=== PATIENT | female | born 1940 | race Caucasian/White ===

== ENCOUNTER 2018-09-09 07:30 | Inpatient (IN) ==
[2018-09-14] MEDS ORDERED: Metoprolol Tartrate 25 MG Tablet PO SCH (05:00)
[2018-09-14] MEDS ORDERED: Dextrose 50% in Water 50 ML Vial IV.PUSH PRN ×2 (06:06→13:04)
[2018-09-14] MEDS ORDERED: Insulin Regular (For Infusion) 100 UNIT in Sodium Chlor 0.9% Inj 99 ML IV.CONT PRN ×2 (06:06→15:00)
[2018-09-14] MEDS ORDERED: Chlorhexidine Gluconate 2% 1 Pack (2 Cloths) TOPICAL ONE (06:08)
[2018-09-14] MEDS ORDERED: Metoprolol Tartrate 25 MG Tablet PO ONE (06:08)
[2018-09-14] MEDS ORDERED: Metoprolol Tartrate 25 MG Tablet ONE (06:08)
[2018-09-14] MEDS ORDERED: ceFAZolin 1 GM Premix Inj 1 GM/50 ML FROZ.PIGGY IV.SIG ONE ×3 (06:15→22:33)
[2018-09-14] MEDS ORDERED: Sodium Chlor 0.9% Inj 77.5 ML, Papaverine Inj 60 MG, Nitroglycerin Inj 100 MCG, dilTIAZ... IRRIGATION SCH ×6 (06:15→07:00)
[2018-09-14] MEDS ORDERED: Sodium Chloride 0.9% Irr Bot 500 ML, ceFAZolin Inj 500 MG IRRIGATION SCH ×2 (06:15)
[2018-09-14] MEDS ORDERED: Chlorhexidine 4% Topical 120 APPLIC/120 ML Bottle TOPICAL SCH (06:15)
[2018-09-14] MEDS ORDERED: MethylPREDNISolone Sod Succinate Inj 125 MG/2 ML Vial ONE (06:16)
[2018-09-14] MEDS ORDERED: Heparin - SQ 10,000 UNITS/ML Vial ONE (06:16)
[2018-09-14] MEDS ORDERED: Sodium Chlor 0.9% Inj 500 ML IV.SIG SCH (07:00)
[2018-09-14] MEDS ORDERED: ceFAZolin 2 GM Premix Inj 2 GM/50 ML PIGGYBACK IV.SIG SCH (07:00)
[2018-09-14] MEDS ORDERED: Potassium Chlor 40 mEq Premix 40 MEQ/100 ML PIGGYBACK ONE (07:32)
[2018-09-14] MEDS ORDERED: Heparin 10,000 UNITS/10 ML Vial (for IV use) ONE (07:32)
[2018-09-14] MEDS ORDERED: CUST1000P IRRIGATION ONE (07:32)
[2018-09-14] MEDS ORDERED: Albumin Human 25% Inj 50 ML IV.SIG ONE (07:33)
[2018-09-14] MEDS ORDERED: Calcium Chloride Inj 1 GM/10 ML Syringe ONE (07:33)
--- NOTE | 2018-09-14 12:22 | P.PNCV ---
- Note Subjective/Hospital Course: 78yr/ old female , hx of Mitral Valve disease . Underwent cardiac cath by Dr Toure , 3 vessel CAD, KALEB mod to severe MR with EF 55% seen in office by Dr Child on 09/01/18 PMH: CAD, MR, HLP, HTN 09/14 pt electively admitted for surgery today MVR/CABG Objective: Vital Signs - 24 hr 09/14/18 06:30 Temperature 98.7 F Pulse Rate 83 Respiratory Rate 18 Blood Pressure 134/73 Pulse Oximetry 95 Labs: Laboratory Results - last 12 hr 09/14/18 06:00 Blood Type O Positive Antibody Screen Negative MTS Gel Crossmatch See Detail
[2018-09-14] MEDS ORDERED: Magnesium Sulfate Inj 2 GM in Sodium Chlor 0.9% Inj 96 ML IV.SIG PRN ×4 (13:04)
[2018-09-14] MEDS ORDERED: Calcium Chloride Inj 1 GM/10 ML Syringe IV.PUSH PRN (13:04)
[2018-09-14] MEDS ORDERED: hydrALAZINE HCl Inj 20 MG/ML Vial IV.PUSH PRN (13:04)
[2018-09-14] MEDS ORDERED: Calcium Chloride Inj 1 GM in Sodium Chlor 0.9% Inj 100 ML IV.SIG PRN (13:04)
[2018-09-14] MEDS ORDERED: Dexmedetomidine Inj 200 MCG in Sodium Chlor 0.9% Inj 48 ML IV.CONT PRN (13:04)
[2018-09-14] MEDS ORDERED: Post-op Orders (for Pharmacy) OTHER STA (13:04)
[2018-09-14] MEDS ORDERED: Potassium Chlor 20 mEq Premix 20 MEQ/100 ML PIGGYBACK IV.SIG PRN ×3 (13:04)
[2018-09-14] MEDS ORDERED: RESP: Racemic Epinephrine 2.25% 0.5 ML Neb NEB PRN (13:04)
[2018-09-14] MEDS ORDERED: DOPamine 800 MG/500 ML Premix 800 MG/500 ML PLAST..BAG IV.CONT PRN (13:04)
[2018-09-14] MEDS ORDERED: Albumin Human 5% Inj 250 ML IV.SIG PRN (13:04)
[2018-09-14] MEDS ORDERED: Clevidipine Inj 25 MG/50 ML VIAL IV.CONT PRN (13:04)
[2018-09-14] MEDS ORDERED: Metoprolol Inj 5 MG/5 ML Vial IV.PUSH PRN (13:04)
--- NOTE | 2018-09-14 13:36 | P.OP ---
- Preoperative Diagnosis (1) Diastolic heart failure (2) CAD (coronary artery disease), [place] coronary artery (3) Mitral valve insufficiency Postoperative Diagnosis: same Date of procedure: 09/14/18 Procedure: Mitral valve repair Quadrangular resection P1 with leaflet reconstruction, closure of posterior leaflet P2/P3 cleft Annuloplasty with a 28 [address] [place] [place] ring CABG x 4 LANDIN to LAD - good SVG to D1 - fair SVG to OM1 - good SVG to RCA - good EVH Resection of left atrial appendage Implants: 28 [place] mitral annuloplasty ring Anesthesia: GETA Surgeon: Mai Child MD Java Designer: Flavio Villa Pathology: other (P1 leaflet segment, left atrial appendage) Operation and Findings: The risks, benefits, complications, treatment options, and expected outcomes were discussed with the patient. The possibilities of reaction to medication, pulmonary aspiration, perforation of viscus, bleeding, recurrent infection, the need for additional procedures, failure to diagnose a condition, and creating a complication requiring transfusion or operation were discussed with the patient. The patient concurred with the proposed plan, giving informed consent. The site of surgery properly noted/marked. The patient was taken to Operating Room, identified as [place] and the procedure verified as Mitral Valve Repair or Replacement, CABG, EVH, KALEB. A Time Out was held and the above information confirmed. Standard monitoring lines and Roman catheter were placed. General anesthesia was induced. The patient was prepped and draped in a sterile fashion. A median sternotomy was performed and electrocautery was used to obtain hemostasis. The left internal mammary artery was procured as a pedicle from the 7th rib to the 1st rib in the usual manner. Simultaneously left greater saphenous vein was procured from the left leg using a minimally invasive endoscopic technique. The vein was prepared for anastomosis and the leg wound was irrigated and closed in 2 layers. The pericardium was opened and a pericardial sling was created using interrupted 0 silk sutures. The patient was heparinized for cardiopulmonary bypass and the distal mammary pedicle was instrumented for anastomosis. The heart was instrumented for cardiopulmonary bypass in the usual manner. Antegrade Custodiol cardioplegia was employed. The patient was placed on cardiopulmonary bypass. The left atrial appendage was resected using a surgical stapler. An aortic cross-clamp was applied and the heart was arrested using cold Custodiol cardioplegia. After adequate arrest, the distal right coronary circulation was investigated and the RCA was opened with a Swisher blade and found to be a 1.5 mm good target. Saphenous vein was approximated to the RCA artery using a running 7 0 Prolene suture. The graft was measured for length and orientation and the proximal anastomosis was performed using a running 5-0 prolene suture after creating an aortotomy with a 5 mm punch. The 1st circumflex marginal artery was then opened with a Swisher blade and found to be a 1.5 millimeter good target . Saphenous vein was approximated to the OM1 artery using a running 7 0 Prolene suture. The graft was measured for length and orientation and the proximal anastomosis was performed using a running 5-0 prolene suture after creating an aortotomy with a 5 mm punch. The 1st diagonal artery was then opened with a Swisher blade and found to be a 1 millimeter fair target . Saphenous vein was approximated to the D1 artery using a running 7 0 Prolene suture. The graft was measured for length and orientation and suspended from the pericardium. The distal LAD was opened with a Swisher blade and found to be a 1.5 millimeter good target. The left internal mammary artery was but was approximated to the LAD using a running 7 0 Prolene suture. The pedicle was attached to the epicardium using interrupted 5 0 silk suture. The patient received a dose of retrograde cardioplegia. The intra-atrial groove was dissected out using electrocautery. The left atrium was entered under direct vision and the atriotomy was extended mildly inferiorly and posteriorly. The mitral valve was exposed using an automatic retractor. The valve was analyzed and the P1 segment was prolapsed with a single ruptured chordae. There was also a posterior cleft between P2 and P3. A quadrangular resection was performed and the leaflet was reconstructed using a 2-0 ticron at the annulus and interrupted 5-0 Ticron sutures on the leaflet. The annulus was sized to a 28 [place] annuloplasty ring which was seated using several interrupted 2-0 Tycron horizontal mattress sutures. After securing the sutures, the valve repair was tested and felt to be inadequate due to some regurgitation along the posterior leaflet. The posterior leaflet was investigated and a cleft was approximated using interrupted 5 0 Tycron suture. The valve repair was then again tested and was excellent. The left atrium was closed using a running 4-0 Prolene suture and a small catheter was left in the left atrium to assist in venting the heart. The patient was systemically rewarmed. The aorta was vented and the proximal anastomosis to the D1 graft was accomplished using a running 5 0 Prolene suture after creating an aortotomy was a 5 millimeter punch. The heart was vigorously deaired with a clamp on. The clamp was removed, deairing continued. Intraoperative KALEB was used to assess intracardiac air and the mitral valve repair. Once the air was evacuated, the vent in the left atrium was removed and the suture line was secured. The heart was loaded and allowed to eject and the mitral valve was analyzed by KALEB. The repair was excellent with trace regurgitation. The patient was weaned from cardiopulmonary bypass. Protamine was given. There was no adverse reaction. Decannulation was carried out without incident. Wound was checked for hemostasis which was obtained using electrocautery. A 36 [place] mediastinal and 32 [place] left pleural chest was were placed and secured to the skin with 0 silk suture. The sternum was closed with stainless steel wire. The fascia was closed with 1. PDS. The subcutaneous tissue was closed using a running 2-0 Vicryl suture. The skin was closed with 4-0 Monocryl. Sterile dressings were placed. At the end of the operation, all sponge, instruments, and needle counts were correct. The patient was transferred to the CVICU in stable condition. Findings: Relatively good distal targets, EF 45-50% after the procedure with trace MR. XC: 136 min CPB: 159 min Drains: mediastinal x 1 pleurel x 1 Specimens: left atrial appendage, P1 segment Complications: none Disposition: to CVICU in stable condition
[2018-09-14] MEDS ORDERED: fentaNYL Citrate Inj 250 MCG/5 ML Ampul ONE (14:00)
--- NOTE | 2018-09-14 14:26 | XR ---
EXAM DATE: 09/14/2018 2:20 PM EST AGE/SEX: 78 years / Female INDICATIONS: Post-op CABG. CLINICAL DATA: This is the patient's initial encounter. Patient reports that signs and symptoms have been present for 1 day and indicates a pain score of Nonresponsive. MEDICAL/SURGICAL HISTORY: None. None. COMPARISON: [facility] [place] 2[place] AP&LAT[place]/28/2018. . FINDINGS: Endotracheal tube is present in good position with tip several centimeters above the ronnie. Nasogast farhad tube coils into the stomach. Left thoracostomy tube and midline chest tube are present. Right nec k sheath and central line are in good position. There is mild vascular congestion and perihilar atele ctasis present bilaterally. No evidence of pneumothorax or significant effusion. Cardiac contours are satisfactory. Sternotomy wires are present. CONCLUSION: Satisfactory support line and tube positioning. Mildly diminished aeration post open heart surgery Electronically signed by: Flavio Muhammad MD 09/14/2018 2:24 PM EST
[2018-09-14] MEDS: Mupirocin 2% Nasal Oint Topical Syringe EACH NARE SCH ×2 (15:24→22:47)
--- NOTE | 2018-09-14 15:39 | P.CONCC ---
History of Present Illness Service: Critical care medicine Consult date: 09/14/18 Requesting Physician: Mai Child Reason for Consult: Critical care medicine management Primary Care Provider: Do Max Garcia Chief Complaint: Postoperative hypoxia History of Present Illness: This is a 78-year-old female. Date of admission 09/14/2018. Date of consultation 09/14/2018. Past medical history includes carotid artery stenosis , chronic kidney disease stage III, hypertension, hyperlipidemia, elevated BMI, osteoarthritis. Patient presented to [facility] today for elective CABG and mitral valve replacement. She has known history of mitral valve disease. She underwent a stress test which was interpreted at high risk. The patient underwent a left heart catheterization which revealed severe three-vessel coronary disease. KALEB showed moderate to severe MR with ejection fraction 55%. Today, patient underwent mitral valve replacement with annuloplasty 28 Alvino. CABG x4 with LANDIN to LAD, SVG to D1, OM1 and RCA. EVH. Patient received 2500 cc crystalloid intraoperative. 500 the Cell Saver. Estimated blood loss was 1000 cc. Patient had 350 cc urine output. Postprocedure, patient was hypoxic and requiring dopamine currently at 5 mics per kilogram per minute to maintain mean arterial pressure of 65. We are asked to help evaluate and wean from the ventilator. Currently receiving a 500 cc bolus normal saline. Patient is currently off dexmedetomidine drip he is awake alert. Playing of pain at surgical site requiring morphine sulfate. Review of Systems unobtainable due to endotracheal tube PMFSH - History History Provided By: Patient - Medical History Medical History: Medical History (Last Reviewed 09/14/18 @ 15:37 by Amadou Sweet MD) CAD (coronary artery disease) CKD (chronic kidney disease), stage III HLD (hyperlipidemia) HTN (hypertension) Mitral regurgitation Osteoarthritis Psoriasis Wears dentures Wears glasses - Surgical History Surgical History: Surgical History (Last Reviewed 09/14/18 @ 15:37 by Amadou Sweet MD) History of total right knee replacement Hx of cardiac catheterization - Family History Family History: Family History (Last Updated 09/14/18 @ 15:37 by Amadou Sweet MD) Other Family history of coronary artery disease - Social History I have reviewed the patient's Social History: Yes - Tobacco History Second Hand Smoke Exposure: No Tobacco Use In Past 30 Days: No Smoking Status: Former smoker - Alcohol History How Often Do You Have a Drink Containing Alcohol: 2 to 4 times a month - Substance Use History Substance History: No History of Abuse - Travel History Recent Travel in the [place] Within the Last 8 Weeks: No Recent Travel Out of the Country Within the Last 8 Weeks: No Medications and Allergies Active Medications: Active Medications Albuterol (Duoneb Neb (Prn)) 1 ampul NEB Q2HR NEB PRN PRN Reason: WHEEZING Albuterol (Duoneb Neb (Pilar)) 1 ampul NEB Q6HR NEB PILAR Allopurinol (Zyloprim) 100 mg PO DAILY [facility] Amlodipine Besylate (Norvasc) 5 mg PO DAILY [facility] Aspirin (Aspirin Chew) 81 mg PO DAILY [facility] Calcium Chloride (Calcium Chloride Inj) 0.5 gm IV.PUSH UNSCH PRN PRN Reason: SEE LABEL COMMENTS Chlorhexidine Gluconate (Hibiclens 4% Topical) 0 applicatio TOPICAL WAITSTAFF CAPTAIN [facility] Stop: 09/20/18 06:06 Sodium Chloride 500 ml/ (Cefazolin Sodium 500 mg) 0 ml IRRIGATION WAITSTAFF CAPTAIN [facility] Stop: 09/20/18 06:07 Last Admin: 09/14/18 08:48 Dose: 1 irrig.soln Sodium Chloride 77.5 ml/Papaverine HCl 60 mg/Nitroglycerin 100 mcg/Diltiazem HCl 100 mg 0 ml IRRIGATION WAITSTAFF CAPTAIN [facility] Last Admin: 09/14/18 08:49 Dose: 1 bag Dextrose (D50w Vial) 50 ml IV.PUSH UNSCH PRN PRN Reason: PER HYPOGLYCEMIA PROTOCOL Epinephrine (Racepinephrine 2.25% Neb) 0.5 ml NEB UNSCH X1 PRN PRN Reason: STRIDOR Stop: 09/15/18 13:03 Fentanyl Citrate (Fentanyl Inj) 25 mcg IV.PUSH Q1H PRN PRN Reason: BREAKTHROUGH PAIN Hydralazine HCl (Apresoline Inj) 10 mg IV.PUSH Q4H PRN PRN Reason: SEE LABEL COMMENTS Cefazolin Sodium/Dextrose (Ancef 2 Gm Premix Inj) 2 gm in 50 mls @ 100 mls/hr IV.SIG WAITSTAFF [employer]TAIN [facility] Last Infusion: 09/14/18 08:11 Dose: Infused Lactated Ringer's (Lr 1000 Ml Inj) 1,000 mls @ 30 mls/hr IV.SIG .Q24H [facility] Stop: 09/15/18 06:14 Last Infusion: 09/14/18 07:19 Dose: Infused Sodium Chloride (Ns Inj) 500 mls @ 30 mls/hr IV.SIG .Q10H PILAR Last Admin: 09/14/18 07:19 Dose: Not Given Albumin Human (Buminate 5% Inj) 250 mls @ 250 mls/hr IV.SIG UNSCH PRN PRN Reason: SEE LABEL COMMENTS Calcium Chloride 1 gm/ Sodium (Chloride) 110 mls @ 100 mls/hr IV.SIG PRN PRN PRN Reason: SEE LABEL COMMENTS Cefazolin Sodium/Dextrose (Ancef 1 Gm Premix Inj) 1 gm in 50 mls @ 200 mls/hr IV.SIG Q8H PILAR Stop: 09/16/18 00:14 Clevidipine (Cleviprex Inj) 25 mg in 50 mls @ 2 mls/hr IV.CONT TITRATE PRN; Protocol PRN Reason: Per protocol Dexmedetomidine HCl 200 mcg/ (Sodium Chloride) 50 mls @ 4.31 mls/hr IV.CONT TITRATE PRN; Protocol PRN Reason: Per Protocol Last Admin: 09/14/18 13:42 Dose: 0.2 mcg/kg/hr, 4.31 mls/hr Dopamine HCl/Dextrose (Dopamine 800 Mg/500 Ml Premix) 800 mg in 500 mls @ 16.181 mls/hr IV.CONT UNSCH PRN; Protocol PRN Reason: Per Protocol Insulin Human Regular 100 unit (/ Sodium Chloride) 100 mls @ 3 mls/hr IV.CONT TITRATE PRN; Protocol PRN Reason: See Protocol Last Admin: 09/14/18 14:00 Dose: 8 units/hr, 8 mls/hr Lactated Ringer's (Lr 1000 Ml Inj) 500 mls @ 500 mls/hr IV.SIG .Q1H PRN PRN Reason: SEE LABEL COMMENTS Magnesium Sulfate 2 gm/ Sodium (Chloride) 100 mls @ 50 mls/hr IV.SIG PRN PRN PRN Reason: SEE LABEL COMMENTS Magnesium Sulfate 2 gm/ Sodium (Chloride) 100 mls @ 50 mls/hr IV.SIG PRN PRN PRN Reason: SEE LABEL COMMENTS Potassium Chloride (Kcl 20 Meq Premix Inj) 20 meq in 100 mls @ 50 mls/hr IV.SIG PRN PRN PRN Reason: SEE LABEL COMMENTS Potassium Chloride (Kcl 20 Meq Premix Inj) 20 meq in 100 mls @ 50 mls/hr IV.SIG PRN PRN PRN Reason: SEE LABEL COMMENTS Potassium Chloride (Kcl 20 Meq Premix Inj) 20 meq in 100 mls @ 50 mls/hr IV.SIG PRN PRN PRN Reason: SEE LABEL COMMENTS Acetaminophen (Ofirmev Inj) 1,000 mg in 100 mls @ 400 mls/hr IV.SIG Q6H [facility] Stop: 09/15/18 09:14 Last Admin: 09/14/18 15:16 Dose: 400 mls/hr Metoprolol Tartrate (Lopressor) 12.5 mg PO WAITSTAFF [employer] [facility] Stop: 09/20/18 06:07 Metoprolol Tartrate (Lopressor Inj) 2.5 mg IV.PUSH Q1H PRN PRN Reason: SEE LABEL COMMENTS Miscellaneous (Pill Splitter) 1 each OTHER UNSCH PRN PRN Reason: SEE LABEL COMMENTS Mupirocin (Bactroban 2% Nasal Oint) 1 applicatio EACH NARE BID [facility] Stop: 09/18/18 06:07 Last Admin: 09/14/18 15:24 Dose: Not Given Ondansetron HCl (Zofran Inj) 4 mg IV.PUSH Q6H PRN PRN Reason: NAUSEA OR VOMITING Oxycodone/Acetaminophen (Percocet 5/325 Mg) 1 tab PO Q3H PRN PRN Reason: PAIN SCALE 1 TO 5 Pantoprazole Sodium (Protonix) 40 mg PO DAILY@06 [facility] Phenylephrine HCl (Neosynephrine Inj) 0.1 mg IV.PUSH UNSCH PRN PRN Reason: SEE LABEL COMMENTS Potassium Chloride (K-Dur) 20 meq PO UNSCH PRN PRN Reason: SEE LABEL COMMENTS Potassium Chloride (K-Dur) 40 meq PO UNSCH PRN PRN Reason: SEE LABEL COMMENTS Pravastatin Sodium (Pravachol) 60 mg PO DAILY [facility] Sodium Bicarbonate (Sodium Bicarbonate 8.4% Inj) 100 meq IV.PUSH UNSCH PRN PRN Reason: SEE LABEL COMMENTS Sodium Bicarbonate (Sodium Bicarbonate 8.4% Inj) 50 meq IV.PUSH UNSCH PRN PRN Reason: SEE LABEL COMMENTS Sodium Chloride (Ns Flush) 2 ml IV.FLUSH BID [facility] Sodium Chloride (Ns Flush) 2 ml IV.FLUSH PRN PRN PRN Reason: FLUSH AFTER USING IV ACCESS Terbutaline Sulfate (Brethine Inj) 1 mg SQ ONCE PRN PRN Reason: Extravasation Allergies Allergy/AdvReac Type Severity Reaction Status Date / Time No Known Allergies Allergy Verified 09/14/18 05:58 Home Medications Medication Instructions Recorded Confirmed Type allopurinol 100 mg PO DAILY 08/20/18 09/14/18 History amlodipine 5 mg PO DAILY 08/20/18 09/14/18 History aspirin [Aspirin Low Dose] 81 mg PO DAILY 08/20/18 09/14/18 History calcium carbonate-vitamin D3 1 tab PO DAILY 08/20/18 09/14/18 History [Caltrate 600 + D] cholecalciferol (vitamin D3) 2,000 unit PO DAILY 08/20/18 09/14/18 History [Vitamin D3] furosemide 20 mg PO DAILY 08/20/18 09/14/18 History labetalol 200 mg PO DAILY 08/20/18 09/14/18 History pravastatin 60 mg PO DAILY 08/20/18 09/14/18 History vitamin P90-tkmng acid 1 tab PO DAILY 08/20/18 09/14/18 History labetalol 100 mg PO HS 09/04/18 09/14/18 History Physical Exam Vital signs: Vital Signs 09/14/18 06:30 09/14/18 13:43 09/14/18 13:58 Temperature 98.7 F Pulse Rate 83 Respiratory Rate 18 16 Blood Pressure 134/73 Pulse Oximetry 95 93 L 95 09/14/18 14:00 09/14/18 14:54 09/14/18 15:00 Temperature 97.0 F L 96.0 F L Pulse Rate 89 96 H Respiratory Rate 11 L 14 14 Blood Pressure 102/57 L Pulse Oximetry 95 94 L 95 Intake & Output 09/13/18 09/14/18 09/14/18 18:59 06:59 18:59 Intake Total 3100 / 3100 Output Total 350 / 350 Balance 2750 / 2750 Weight 86.3 kg Intake: IV 1100 / 1100 LR 1000 mL Inj 1,000 ML @ 30 1000 / 1000 mls/hr IV.SIG .Q24H [facility] Rx#: [id number] Ancef 1 GM Premix Inj 1 gm In 50 / 50 50 ml @ 0 mls/hr IV.SIG .STK- [facility] Rx#:[id number] Ancef 2 GM Premix Inj 2 gm In 50 / 50 50 ml @ 100 mls/hr IV.SIG WAITSTAFF CAPTAIN [facility] Rx#:[id number] Anesthesia Amount 1500 / 1500 Cell Saver Amount 500 / 500 Output: Urine Amount (Catheter) 350 / 350 Indwelling Temp Sensing 350 / 350 Catheter Other: Weight On Admission 86.3 kg - Constitutional no acute distress - Routine HEENT Exam Head: Present: normocephalic, atraumatic Eye: Present: EOMI, PERRL ENT: Present: mucous membranes moist - Routine Neck Exam Present: supple, full ROM. Absent: JVD - Routine Respiratory Exam Present: crackles, diminished air movement. Absent: accessory muscle use - Routine Cardiovascular Exam Present: RRR, S1, S2. Absent: murmur - Routine Abdominal Exam Present: soft, normoactive bowel sounds - Routine Exam Patient deferred: external exam, groin exam, perineal exam - Routine Extremities Exam Present: edema. Absent: cyanosis, clubbing - Routine Skin Exam Present: intact, dry - Routine Neurological Exam Present: alert, CN II-XII intact. Absent: oriented X3 - Detailed Neurological Exam: Coma Scale Eye Opening: Spontaneous Verbal Response: None Motor Response: Obey commands Janelle Coma Scale Total: 11 - Routine Psychiatric Exam Present: unable to assess - Urinary Catheter Management Indwelling Temp Sensing Catheter Cath placed during this visit: yes Urethral indwelling: Yes Reason for continuing: Hourly intake/output Insertion date: 09/14/18 Insertion time: 07:45 Septic Shock Reassessment Septic shock perfusion: reassessment completed Assessment and Plan - Assessment and Plan Plan: Neuro/Psych: Acetaminophen 650 mg by mouth every 6 hours as needed fever Oxycodone/acetaminophen 1 tablet every 3 hours as needed pain CV: Postop day 0 mitral valve repair Quadrangular resection P1 with leaflet reconstruction, closure of posterior leaflet P2/P3 cleft Annuloplasty with a 28 [address] [place] ring CABG x 4 LANDIN to LAD - good SVG to D1 - fair SVG to OM1 - good SVG to RCA - good EVH Resection of left atrial appendage Essential hypertension Hyperlipidemia Postoperative hypotension History of carotid artery stenosis New patient to take amlodipine 5 mg and received metoprolol 12.5 mg earlier this a.m. Continue pravastatin 60 mg daily for dyslipidemia Hold amlodipine 5 mg daily for hypertension. Continue aspirin 81 mg by mouth daily Receiving 500 cc bolus. Currently on dopamine at 5 mcg/kg/min to maintain mean artery pressure greater than equal 65 Resp: Acute respiratory insufficiency Postoperative chest x-ray revealed adequate positioning of mediastinal/left pleural tubes. Less than 100 cc serosanguineous postoperative -20 cmH2O Albuterol/ipratropium aerosols every 6 hours with albuterol aerosols every 2 hours as needed for dyspnea Titrate FiO2 to maintain saturation greater than 92% We will attempt CPAP and attempt to extubate later this evening GI: Currently n.p.o. status Pantoprazole for GI prophylaxis : Roman catheter in place for accurate I's and O's in a critically ill patient Endo: Gout Continue allopurinol 100 mg daily/home medication Currently on insulin drip per CT surgery protocol Renal: Chronic kidney disease stage III Creatinine currently 1.34 on Gómez Monitor urine output Accurate I's and O's BMP ordered for a.m. 09/15 Heme: Normocytic anemia Monitor CBC daily. Follow trends. No indication for transfusion of blood products at this time. ID: Pre-and cefazolin 1 g IV every 8 hours x5 doses per CT surgery Monitor for signs and symptomatology infection MSK: Elevated BMI of 37 History of arthritis PT evaluate and treat Weight loss encouraged FEN: Replace electrolytes as clinically indicated Access -Right IJ cordis with dual-lumen catheter day #1 -Left radial arterial line day #1 Prophylaxis -GI -pantoprazole -DVT- pharmacological prophylaxis per CT surgery Level 2 follow-up Code Status: Full code Discussed Condition With: Dr. Child. 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 Care plan discussed and all questions answered.
[2018-09-14] MEDS: ceFAZolin 1 GM Premix Inj 1 GM/50 ML FROZ.PIGGY IV.SIG SCH (15:57)
[2018-09-14] MEDS: fentaNYL Citrate Inj 100 MCG/2 ML Ampul IV.PUSH PRN (18:04)
[2018-09-15] MEDS: ceFAZolin 1 GM Premix Inj 1 GM/50 ML FROZ.PIGGY IV.SIG SCH ×3 (00:08→15:34)
[2018-09-15] MEDS: fentaNYL Citrate Inj 100 MCG/2 ML Ampul IV.PUSH PRN ×4 (02:07→08:42)
[2018-09-15 05:27] LABS: Hematocrit 29.6 % (35.0-46.0); Mean Corpuscular HGB Conc 33.8 % (32.0-36.0); Mean Corpuscular Hemoglobin 31.5 pg (27.0-34.0); Mean Corpuscular Volume 93.3 fL (80.0-100.0); Mean Platelet Volume 10.4 fL (7.0-11.0); Platelet Count 108 th/mm3 (150-450); Red Blood Count 3.18 mil/mm3 (4.00-5.30); Red Cell Distribution Width 13.9 % (11.6-17.2); White Blood Count 10.2 th/mm3 (4.0-11.0)
[2018-09-15 06:00] LABS: Calcium 8.2 mg/dL (8.5-10.1); Carbon Dioxide 24.9 meq/L (21.0-32.0); Magnesium 2.3 mg/dL (1.5-2.5); Potassium 3.8 meq/L (3.5-5.1)
--- NOTE | 2018-09-15 06:15 | XR ---
EXAM DATE: 09/15/2018 5:54 AM EST AGE/SEX: 78 years / Female INDICATIONS: Status post CABG. CLINICAL DATA: This is the patient's subsequent encounter. Patient reports that signs and symptoms h ave been present for 2 days and indicates a pain score of 0/10. MEDICAL/SURGICAL HISTORY: Hypertension. CAD. Stage 3 kidney disease. Hyperlipidemia. Mitral reg urgitation. . CABG. Rt knee replacement. Cardiac cath [place] [facility]. . FINDINGS: Left chest tube and central chest tube without pneumothorax. Basilar airspace disease bilaterally sim ilar to prior exam with small effusions. Right central line in superior vena cava. Previous endotrach eal tube and nasogastric tube have been removed. CONCLUSION: Central and left chest tube without pneumothorax. Interval extubation. Right central line unchanged. Bilateral mostly basilar airspace disease and small effusions persist. Electronically signed by: Cuba Hung MD 09/15/2018 6:14 AM EST
--- NOTE | 2018-09-15 08:07 | P.PNCC ---
Subjective Subjective Remarks/Hospital Course: This is a 78-year-old female. Date of admission 09/14/2018. Date of consultation 09/14/2018. Past medical history includes carotid artery stenosis , chronic kidney disease stage III, hypertension, hyperlipidemia, elevated BMI, osteoarthritis. Patient presented to [facility] today for elective CABG and mitral valve replacement. She has known history of mitral valve disease. She underwent a stress test which was interpreted at high risk. The patient underwent a left heart catheterization which revealed severe three-vessel coronary disease. KALEB showed moderate to severe MR with ejection fraction 55%. Today, patient underwent mitral valve replacement with annuloplasty 28 [facility]. CABG x4 with LANDIN to LAD, SVG to D1, OM1 and RCA. EVH. Patient received 2500 cc crystalloid intraoperative. 500 the Cell Saver. Estimated blood loss was 1000 cc. Patient had 350 cc urine output. Postprocedure, patient was hypoxic and requiring dopamine currently at 5 mics per kilogram per minute to maintain mean arterial pressure of 65. We are asked to help evaluate and wean from the ventilator. Currently receiving a 500 cc bolus normal saline. Patient is currently off dexmedetomidine drip he is awake alert. Playing of pain at surgical site requiring morphine sulfate. Subjective 09/15: Resting comfortably in bed in no acute distress. Currently in school mask 3 L. Complaining of pain in her chest/postsurgical. Going to RN, fentanyl made the patient slightly disoriented. Objective Vital Signs / I&O: Vital Signs 09/14/18 13:43 09/14/18 13:58 09/14/18 14:00 Temperature 97.0 F L Pulse Rate 89 Respiratory Rate 16 11 L Blood Pressure 102/57 L Pulse Oximetry 93 L 95 95 09/14/18 14:54 09/14/18 15:00 09/14/18 15:45 Temperature 96.0 F L Pulse Rate 96 H Respiratory Rate 14 14 Blood Pressure Pulse Oximetry 94 L 95 95 09/14/18 15:48 09/14/18 16:46 09/14/18 19:07 Temperature Pulse Rate 86 Respiratory Rate 14 19 Blood Pressure Pulse Oximetry 93 L 94 L 09/14/18 20:00 09/14/18 21:17 09/15/18 00:00 Temperature 97.6 F 97.2 F L Pulse Rate 106 H 100 H 98 H Respiratory Rate 18 18 18 Blood Pressure 96/52 L 117/68 Pulse Oximetry 95 98 96 09/15/18 03:47 09/15/18 04:00 09/15/18 07:00 Temperature 97.2 F L Pulse Rate 112 H 106 H Respiratory Rate 18 20 Blood Pressure 119/47 L Pulse Oximetry 96 94 L Intake & Output 09/14/18 09/15/18 09/15/18 18:59 06:59 18:59 Intake Total 4860 / 4860 2480 / 2480 Output Total 1075 / 1075 1055 / 1055 Balance 3785 / 3785 1425 / 1425 Weight 90.5 kg Intake: IV 1360 / 1360 500 / 500 Ofirmev Inj 1,000 mg In 100 ml 100 / 100 200 / 200 @ 400 mls/hr IV.SIG Q6H LUCRECIA Rx# :[id number] Buminate 5% Inj 250 ML @ 250 250 / 250 mls/hr IV.SIG UNSCH PRN Rx#: [id number] Calcium Chloride Inj 1 GM In NS 110 / 110 Inj 100 ML @ 100 mls/hr IV.SIG PRN PRN Rx#:[id number] LR 1000 mL Inj 1,000 ML @ 30 1000 / 1000 mls/hr IV.SIG .Q24H LUCRECIA Rx#: [id number] Ancef 1 GM Premix Inj 1 gm In 100 / 100 50 / 50 50 ml @ 200 mls/hr IV.SIG Q8H LUCRECIA Rx#:[id number] Ancef 2 GM Premix Inj 2 gm In 50 / 50 50 ml @ 100 mls/hr IV.SIG TIRE RETREADER LUCRECIA Rx#:[id number] Oral 480 / 480 Anesthesia Amount 1500 / 1500 Other 1500 / 1500 1500 / 1500 Cell Saver Amount 500 / 500 Output: Urine Amount (Catheter) 890 / 890 635 / 635 Indwelling Temp Sensing 890 / 890 635 / 635 Catheter Gastric Drainage 25 / 25 Orogastric Tube 25 / 25 Chest Tube Drainage 160 / 160 420 / 420 Pleural/Mediastinal 160 / 160 420 / 420 Other: Other Intake Source Saline Solution # Bowel Movements 0 Result Diagrams: 09/15/18 05:10 09/15/18 05:10 Imaging: Chest X-Ray 09/14/18 13:04 CONCLUSION: Satisfactory support line and tube positioning. Mildly diminished aeration post open heart surgery Chest X-Ray 09/15/18 05:00 CONCLUSION: Central and left chest tube without pneumothorax. Interval extubation. Right central line unchanged. Bilateral mostly basilar airspace disease and small effusions persist. Objective Remarks: GENERAL: 78-year-old female currently resting in bed on simple mask in no acute distress SKIN: Warm and dry. HEAD: Atraumatic. Normocephalic. EYES: Pupils equal and round. No scleral icterus. No injection or drainage. ENT: No nasal bleeding or discharge. Mucous membranes pink and moist. NECK: Trachea midline. No JVD. CARDIOVASCULAR: Regular rate and rhythm. S1, S2 no 4. Mediastinal VAC in place. RESPIRATORY: No accessory muscle use. Clear to auscultation. Breath sounds equal bilaterally. Mediastinal/left pleural chest tube intact. Serosanguineous output. GASTROINTESTINAL: Abdomen soft, non-tender, nondistended. Hypoactive bowel sounds. MUSCULOSKELETAL: Extremities left lower extremity wrapped in Lit bandage. Palpable pulses dorsalis pedis and posterior tibialis right lower extremity NEUROLOGICAL: Awake and alert. No obvious cranial nerve deficits. Motor grossly within normal limits. Five out of 5 muscle strength in the arms and legs. Normal speech. PSYCHIATRIC: Appropriate mood and affect; insight and judgment normal. Assessment and Plan - Assessment and Plan Plan: Neuro/Psych: On schedule Ofirmev 1 g IV every 6 every 6 hours scheduled times 24 hours Oxycodone/acetaminophen 1 tablet every 3 hours as needed pain Fentanyl 25 mg every 1 hour as needed CV: Postop day 0 mitral valve repair Quadrangular resection P1 with leaflet reconstruction, closure of posterior leaflet P2/P3 cleft Annuloplasty with a 28 [facility] [place] ring CABG x 4 LANDIN to LAD - good SVG to D1 - fair SVG to OM1 - good SVG to RCA - good EVH Resection of left atrial appendage Essential hypertension Hyperlipidemia Postoperative hypotension History of carotid artery stenosis Home medication amlodipine 5 mg probably on hold while on dopamine Continue pravastatin 60 mg daily for dyslipidemia Hold amlodipine 5 mg daily for hypertension. Continue aspirin 81 mg by mouth daily Currently on dopamine at 3 mcg/kg/min to maintain mean artery pressure greater than equal 65 Resp: Acute respiratory insufficiency Postoperative chest x-ray revealed adequate positioning of mediastinal/left pleural tubes. Less than 580 cc serosanguineous postoperative -20 cmH2O Albuterol/ipratropium aerosols every 6 hours with albuterol aerosols every 2 hours as needed for dyspnea Titrate FiO2 to maintain saturation greater than 92% Currently on simple mask. Wean GI: Currently n.p.o. status Pantoprazole for GI prophylaxis : Roman catheter in place for accurate I's and O's in a critically ill patient. This is been removed Endo: Gout Continue allopurinol 100 mg daily/home medication Currently on insulin drip per CT surgery protocol Renal: Chronic kidney disease stage III Creatinine currently 1.05 on Gómez Monitor urine output Accurate I's and O's BMP ordered for a.m. 09/16 Heme: Normocytic anemia Thrombocytopenia Monitor CBC daily. Follow trends. No indication for transfusion of blood products at this time. ID: Pre-and cefazolin 1 g IV every 8 hours x5 doses per CT surgery Monitor for signs and symptomatology infection MSK: Elevated BMI of 39 History of arthritis PT evaluate and treat Weight loss encouraged FEN: Replace electrolytes as clinically indicated Access -Right IJ cordis with dual-lumen catheter day #2 -Left radial arterial line day #2 Prophylaxis -GI -pantoprazole -DVT- pharmacological prophylaxis per CT surgery Level 2 follow-up
[2018-09-15] MEDS ORDERED: ceFAZolin 1 GM Premix Inj 1 GM/50 ML FROZ.PIGGY IV.SIG ONE ×2 (08:47→15:31)
[2018-09-15] MEDS ORDERED: amLODIPine 5 MG Tablet PO SCH (09:00)
[2018-09-15] MEDS ORDERED: Dextrose 50% in Water 50 ML Vial IV.PUSH PRN (09:01)
[2018-09-15] MEDS ORDERED: Sod Phosphate/Sod Biphosphate (Adult) Enema 133 ML Bottle RECTAL PRN (09:01)
[2018-09-15] MEDS ORDERED: Bisacodyl 10 MG Supp RECTAL PRN (09:01)
[2018-09-15] MEDS: Insulin NovoLOG Aspart Correctional Sugar Inj SQ SCH ×4 (10:37→22:46)
[2018-09-15] MEDS: Allopurinol 100 MG Tablet PO SCH (10:40)
[2018-09-15] MEDS: Mupirocin 2% Nasal Oint Topical Syringe EACH NARE SCH ×2 (10:40→21:50)
--- NOTE | 2018-09-15 12:53 | P.DIET ---
Nutritional Evaluation Screening comments: MDC for diet education s/p CABG x 4 received. Patient Navigator to provide education. Consult RD if complexities with diet education arise.
--- NOTE | 2018-09-15 14:39 | P.PNCV ---
- Note Subjective/Hospital Course: 78yr/ old female , hx of Mitral Valve disease . Underwent cardiac cath by Dr Toure , 3 vessel CAD, KALEB mod to severe MR with EF 55% seen in office by Dr Child on 09/01/18 PMH: CAD, MR, HLP, HTN 09/14 pt electively admitted for surgery today MVR/CABG surgery: Mitral valve repair Quadrangular resection P1 with leaflet reconstruction, closure of posterior leaflet P2/P3 cleft Annuloplasty with a 28 [facility] [place] ring CABG x 4 LANDIN to LAD - good SVG to D1 - fair SVG to OM1 - good SVG to RCA - good EVH Resection of left atrial appendage Patient received 2500 cc crystalloid intraoperative. 500 the Cell Saver. Estimated blood loss was 1000 cc. Patient had 350 cc urine output. Postprocedure, patient was hypoxic and requiring dopamine currently at 5 mics per kilogram per minute to maintain mean arterial pressure of 65. 09/15 pt remains on 2 mcq of Dopamine was on 8 liters 6 liters +5200 4kg gentle diuresis , no BB for now with labile BP, on ASA statin needs aggressive pulm toileting OOB with PT Objective: Vital Signs - 24 hr 09/14/18 14:54 09/14/18 15:00 09/14/18 15:45 Temperature 96.0 F L Pulse Rate 96 H Respiratory Rate 14 14 Blood Pressure Pulse Oximetry 94 L 95 95 09/14/18 15:48 09/14/18 16:46 09/14/18 19:07 Temperature Pulse Rate 86 Respiratory Rate 14 19 Blood Pressure Pulse Oximetry 93 L 94 L 09/14/18 20:00 09/14/18 21:17 09/15/18 00:00 Temperature 97.6 F 97.2 F L Pulse Rate 106 H 100 H 98 H Respiratory Rate 18 18 18 Blood Pressure 96/52 L 117/68 Pulse Oximetry 95 98 96 09/15/18 03:47 09/15/18 04:00 09/15/18 07:00 Temperature 97.2 F L 98.1 F Pulse Rate 112 H 106 H 102 H Respiratory Rate 18 20 20 Blood Pressure 119/47 L 118/59 L Pulse Oximetry 96 94 L 09/15/18 08:00 09/15/18 09:10 09/15/18 11:00 Temperature 97.4 F L Pulse Rate 99 H 101 H 103 H Respiratory Rate 17 20 Blood Pressure 124/54 L Pulse Oximetry 98 97 09/15/18 12:00 09/15/18 13:25 Temperature Pulse Rate 107 H 113 H Respiratory Rate 17 Blood Pressure Pulse Oximetry 98 GENERAL: A&O x 3 SKIN: Warm and dry. prevena dressing to chest , rakan to left leg HEAD: Normocephalic. EYES: No scleral icterus. No injection or drainage. NECK: Supple, trachea midline. No JVD or lymphadenopathy. CARDIOVASCULAR: Regular rate and rhythm without murmurs, gallops, or rubs. RESPIRATORY: Breath sounds equal bilaterally. No accessory muscle use. diminished in bases chest tube to wall suction, no air leak / drained 420cc/ 12hrs GASTROINTESTINAL: Abdomen soft, non-tender, nondistended. MUSCULOSKELETAL: No cyanosis, or edema. BACK: Nontender without obvious deformity. No CVA tenderness. Labs: Laboratory Results - last 12 hr 09/14/18 09/15/18 09/15/18 06:00 03:24 05:10 WBC 10.2 RBC 3.18 L Hgb 10.0 L Hct 29.6 L MCV 93.3 MCH 31.5 MCHC 33.8 RDW 13.9 Plt Count 108 L D MPV 10.4 Sodium Potassium Chloride Carbon Dioxide Anion Gap BUN Creatinine Estimated GFR POC Glucose 150 H Random Glucose Calcium Magnesium Blood Type O Positive Antibody Screen Negative MTS Gel Crossmatch See Detail 09/15/18 09/15/18 09/15/18 05:10 05:16 06:16 WBC RBC Hgb Hct MCV MCH MCHC RDW Plt Count MPV Sodium 143 Potassium 3.8 Chloride 112 H Carbon Dioxide 24.9 Anion Gap 6 BUN 32 H Creatinine 1.05 H Estimated GFR 50 L POC Glucose 109 126 H Random Glucose 116 H Calcium 8.2 L Magnesium 2.3 Blood Type Antibody Screen MTS Gel Crossmatch 09/15/18 09/15/18 09/15/18 07:39 10:20 13:33 WBC RBC Hgb Hct MCV MCH MCHC RDW Plt Count MPV Sodium Potassium Chloride Carbon Dioxide Anion Gap BUN Creatinine Estimated GFR POC Glucose 106 138 H 136 H Random Glucose Calcium Magnesium Blood Type Antibody Screen MTS Gel Crossmatch Result Diagrams: 09/15/18 05:10 09/15/18 05:10 Telemetry: sinus rhythm> sinus tach with pac - Plan (4) Mitral valve insufficiency Plan: s/p mitral valve repair Resp: pulm toileting wean 02 as tolerated + weight / gentle diuresis CV: sinus tach, BP labile on dopamine , wean as tolerated GI: heart healthy diet : monitor I&O / hx of CKD keep in CVICU for now
[2018-09-15] MEDS: Docusate Sodium 100 MG Capsule PO SCH (21:50)
[2018-09-16] MEDS ORDERED: ceFAZolin 1 GM Premix Inj 1 GM/50 ML FROZ.PIGGY IV.SIG ONE (00:48)
[2018-09-16] MEDS: ceFAZolin 1 GM Premix Inj 1 GM/50 ML FROZ.PIGGY IV.SIG SCH ×2 (00:53→08:35)
[2018-09-16] MEDS ORDERED: Amiodarone Inj 150 MG in Dextrose 5% in Water Inj 97 ML IV.SIG ONE ×4 (02:29→22:31)
[2018-09-16] MEDS: Insulin NovoLOG Aspart Correctional Sugar Inj SQ SCH ×5 (02:51→21:41)
[2018-09-16 05:10] LABS: Baso % (Auto) 0.1 % (0.0-2.0); Hematocrit 27.7 % (35.0-46.0); Hemoglobin 9.4 gm/dL (11.6-15.3); Lymph # (Auto) 1.5 th/mm3 (1.0-4.8); Mean Corpuscular HGB Conc 33.8 % (32.0-36.0); Mean Corpuscular Hemoglobin 31.1 pg (27.0-34.0); Mean Corpuscular Volume 92.1 fL (80.0-100.0); Mean Platelet Volume 10.8 fL (7.0-11.0); Mono # (Auto) 0.9 th/mm3 (0.0-0.9); Neut # (Auto) 12.4 th/mm3 (1.8-7.7); Neut % (Auto) 83.9 % (16.0-70.0); Platelet Count 107 th/mm3 (150-450); Red Blood Count 3.01 mil/mm3 (4.00-5.30); Red Cell Distribution Width 14.2 % (11.6-17.2); White Blood Count 14.8 th/mm3 (4.0-11.0)
[2018-09-16 05:38] LABS: Calcium 7.9 mg/dL (8.5-10.1); Carbon Dioxide 24.6 meq/L (21.0-32.0); Magnesium 2.2 mg/dL (1.5-2.5); Potassium 4.4 meq/L (3.5-5.1)
[2018-09-16] MEDS ORDERED: Bisacodyl 10 MG Supp RECTAL PRN (07:40)
[2018-09-16] MEDS ORDERED: Dextrose 50% in Water 50 ML Vial IV.PUSH PRN (07:40)
[2018-09-16] MEDS ORDERED: Polyethylene Glycol 3350 17 GM Packet PO SCH (09:00)
--- NOTE | 2018-09-16 09:37 | P.PNCC ---
Subjective Subjective Remarks/Hospital Course: This is a 78-year-old female. Date of admission 09/14/2018. Date of consultation 09/14/2018. Past medical history includes carotid artery stenosis , chronic kidney disease stage III, hypertension, hyperlipidemia, elevated BMI, osteoarthritis. Patient presented to [facility] today for elective CABG and mitral valve replacement. She has known history of mitral valve disease. She underwent a stress test which was interpreted at high risk. The patient underwent a left heart catheterization which revealed severe three-vessel coronary disease. KALEB showed moderate to severe MR with ejection fraction 55%. Today, patient underwent mitral valve replacement with annuloplasty 28 [facility]. CABG x4 with LANDIN to LAD, SVG to D1, OM1 and RCA. EVH. Patient received 2500 cc crystalloid intraoperative. 500 the Cell Saver. Estimated blood loss was 1000 cc. Patient had 350 cc urine output. Postprocedure, patient was hypoxic and requiring dopamine currently at 5 mics per kilogram per minute to maintain mean arterial pressure of 65. We are asked to help evaluate and wean from the ventilator. Currently receiving a 500 cc bolus normal saline. Patient is currently off dexmedetomidine drip he is awake alert. Playing of pain at surgical site requiring morphine sulfate. 09/15: Resting comfortably in bed in no acute distress. Currently in school mask 3 L. Complaining of pain in her chest/postsurgical. Going to RN, fentanyl made the patient slightly disoriented. Subjective 09/16: Currently on 5 L nasal cannula. Afebrile. Tachycardic. No problems with vision. Pain controlled. Objective Vital Signs / I&O: Vital Signs 09/15/18 11:00 09/15/18 12:00 09/15/18 13:25 Temperature 97.4 F L Pulse Rate 103 H 107 H 113 H Respiratory Rate 20 17 Blood Pressure 124/54 L Pulse Oximetry 97 98 09/15/18 15:00 09/15/18 16:00 09/15/18 19:00 Temperature 97.9 F Pulse Rate 97 H 113 H Respiratory Rate 20 Blood Pressure 97/77 L Pulse Oximetry 94 L 98 09/15/18 20:00 09/15/18 20:23 09/15/18 23:00 Temperature 98 F Pulse Rate 100 H 102 H Respiratory Rate 22 18 Blood Pressure 107/76 Pulse Oximetry 97 96 96 09/16/18 00:00 09/16/18 03:00 09/16/18 04:00 Temperature 97.7 F 97.9 F Pulse Rate 96 H 101 H Respiratory Rate 24 22 Blood Pressure 106/68 98/66 L Pulse Oximetry 96 96 95 09/16/18 07:00 09/16/18 07:30 Temperature Pulse Rate 108 H Respiratory Rate 17 Blood Pressure Pulse Oximetry 94 L 93 L Intake & Output 09/15/18 09/16/18 09/16/18 18:59 06:59 18:59 Intake Total 820 / 820 490 / 490 3800 / 3800 Output Total 330 / 330 540 / 540 Balance 490 / 490 -50 / -50 3800 / 3800 Weight 94 kg Intake: IV 100 / 100 50 / 50 3800 / 3800 Cordarone Inj 450 MG In D5W Inj 100 / 100 241 ML @ 1 MG/MIN 33.33 mls/hr IV.CONT TITRATE PRN Rx#: [id number] DOPamine 800 MG/500 ML Premix 50 / 50 800 mg In 500 ml @ 5 MCG/KG/MIN 16.181 mls/hr IV.CONT UNSCH PRN Rx#:[id number] Cordarone Inj 150 MG In D5W Inj 100 / 100 97 ML @ 600 mls/hr IV.SIG ONCE ONE Rx#:[id number] Ancef 1 GM Premix Inj 1 gm In 100 / 100 50 / 50 50 / 50 50 ml @ 200 mls/hr IV.SIG Q8H LUCRECIA Rx#:[id number] Oral 440 / 440 Oral Supplement 720 / 720 Output: Urine 300 / 300 Chest Tube Drainage 330 / 330 240 / 240 Pleural/Mediastinal 330 / 330 240 / 240 Other: # Voids 2 # Incontinent Voids 2 # Bowel Movements 0 0 Result Diagrams: 09/16/18 04:25 09/16/18 04:25 Imaging: Chest X-Ray 09/14/18 13:04 CONCLUSION: Satisfactory support line and tube positioning. Mildly diminished aeration post open heart surgery Chest X-Ray 09/15/18 05:00 CONCLUSION: Central and left chest tube without pneumothorax. Interval extubation. Right central line unchanged. Bilateral mostly basilar airspace disease and small effusions persist. Objective Remarks: GENERAL: 78-year-old female currently resting in bed on nasal cannula in no acute distress SKIN: Warm and dry. HEAD: Atraumatic. Normocephalic. EYES: Pupils equal and round. No scleral icterus. No injection or drainage. ENT: No nasal bleeding or discharge. Mucous membranes pink and moist. NECK: Trachea midline. No JVD. CARDIOVASCULAR: Tachycardic, normal rhythm. S1, S2 no 4. Mediastinal VAC in place. RESPIRATORY: No accessory muscle use. Clear to auscultation. Breath sounds equal bilaterally. Mediastinal/left pleural chest tube intact. Serosanguineous output. GASTROINTESTINAL: Abdomen soft, non-tender, nondistended. Hypoactive bowel sounds. MUSCULOSKELETAL: Extremities left lower extremity wrapped in Lit bandage. Palpable pulses dorsalis pedis and posterior tibialis right lower extremity NEUROLOGICAL: Awake and alert. No obvious cranial nerve deficits. Motor grossly within normal limits. Five out of 5 muscle strength in the arms and legs. Normal speech. PSYCHIATRIC: Appropriate mood and affect; insight and judgment normal. Assessment and Plan - Assessment and Plan Plan: Neuro/Psych: Completed scheduled Ofirmev 1 g IV every 6 every 6 hours scheduled times 24 hours CV: Postop day 2 mitral valve repair Quadrangular resection P1 with leaflet reconstruction, closure of posterior leaflet P2/P3 cleft Annuloplasty with a 28 [facility] [facility] [place] ring CABG x 4 LANDIN to LAD - good SVG to D1 - fair SVG to OM1 - good SVG to RCA - good EVH Resection of left atrial appendage Essential hypertension Hyperlipidemia Postoperative hypotension History of carotid artery stenosis Home medication amlodipine [address] surgery Continue pravastatin 60 mg daily for dyslipidemia Continue aspirin 81 mg by mouth daily Currently on off dopamine drip Continue amiodarone 400 mg twice daily Resp: Acute respiratory insufficiency Postoperative chest x-ray revealed adequate positioning of mediastinal/left pleural tubes. Less than 570 cc serosanguineous postoperative -20 cmH2O Albuterol/ipratropium aerosols every 6 hours with albuterol aerosols every 2 hours as needed for dyspnea Titrate FiO2 to maintain saturation greater than 92% Currently on nasal cannula at 5 L. Wean to maintain goals as above GI: Advance diet as tolerated Pantoprazole for GI prophylaxis Docusate sodium 100 mg twice daily, polyethylene glycol 17 g daily. : Roman catheter has been removed Endo: Gout Continue allopurinol 100 mg daily/home medication Currently on insulin aspart sliding scale insulin per CT surgery protocol Renal: Chronic kidney disease stage III Creatinine currently 1.63 Monitor urine output Accurate I's and O's BMP ordered for a.m. 09/17. Noted received furosemide 20 mg yesterday Heme: Normocytic anemia Thrombocytopenia Leukocytosis Monitor CBC daily. Follow trends. No indication for transfusion of blood products at this time. ID: Pre-and cefazolin 1 g IV every 8 hours x5 doses per CT surgery Monitor for signs and symptomatology infection MSK: Elevated BMI of 40.5 History of arthritis PT evaluate and treat Weight loss encouraged FEN: Replace electrolytes as clinically indicated Access -Right IJ cordis with dual-lumen catheter day #3 -Left radial arterial line day #2 discontinue 09/15 Prophylaxis -GI -pantoprazole -DVT- pharmacological prophylaxis per CT surgery Level 2 follow-up
[2018-09-16] MEDS ORDERED: Insulin NovoLOG Aspart Correctional Sugar Inj SQ SCH (10:00)
[2018-09-16] MEDS: Multivitamin/Minerals Therapeutic Tablet PO SCH (10:54)
[2018-09-16] MEDS: Amiodarone 200 MG Tablet PO SCH ×2 (10:55→20:12)
[2018-09-16] MEDS: Allopurinol 100 MG Tablet PO SCH (10:56)
[2018-09-16] MEDS: Docusate Sodium 100 MG Capsule PO SCH ×2 (10:57→20:12)
[2018-09-16] MEDS: Mupirocin 2% Nasal Oint Topical Syringe EACH NARE SCH ×2 (10:57→20:13)
--- NOTE | 2018-09-16 12:49 | ECG ---
Date Performed: 09/15/2018 Time Performed: 09:34:52 PTAGE: 78 years EKG: Sinus tachycardia Leftward axis rSr'(V1) - probable normal variant Poor R wave progression - probable normal variant Low QRS voltages in precordial leads Borderline ECG PREVIOUS TRACING : 09/04/2018 11.18 DOCTOR: Leighton Montalvo Interpretating Date/Time 09/16/2018 12:47:09
--- NOTE | 2018-09-16 17:09 | P.PNCV ---
- Note Subjective/Hospital Course: 78yr/ old female , hx of Mitral Valve disease . Underwent cardiac cath by Dr Toure , 3 vessel CAD, KALEB mod to severe MR with EF 55% seen in office by Dr Child on 09/01/18 PMH: CAD, MR, HLP, HTN 09/14 pt electively admitted for surgery today MVR/CABG surgery: Mitral valve repair Quadrangular resection P1 with leaflet reconstruction, closure of posterior leaflet P2/P3 cleft Annuloplasty with a 28 [facility] [facility] [place] ring CABG x 4 LANDIN to LAD - good SVG to D1 - fair SVG to OM1 - good SVG to RCA - good EVH Resection of left atrial appendage Patient received 2500 cc crystalloid intraoperative. 500 the Cell Saver. Estimated blood loss was 1000 cc. Patient had 350 cc urine output. Postprocedure, patient was hypoxic and requiring dopamine currently at 5 mics per kilogram per minute to maintain mean arterial pressure of 65. 09/15 pt remains on 2 mcq of Dopamine was on 8 liters 6 liters +5200 4kg gentle diuresis , no BB for now with labile BP, on ASA statin needs aggressive pulm toileting OOB with PT 09/16 creatinine increased, hold on diuresis went into afib RVR last night , recieved amiodarone bolus converted to NSR, BP labile, hold BB stable to transfer to stepdown unit Objective: Vital Signs - 24 hr 09/15/18 19:00 09/15/18 20:00 09/15/18 20:23 Temperature 98 F Pulse Rate 100 H 102 H Respiratory Rate 22 18 Blood Pressure 107/76 Pulse Oximetry 98 97 96 09/15/18 23:00 09/16/18 00:00 09/16/18 03:00 Temperature 97.7 F Pulse Rate 96 H Respiratory Rate 24 Blood Pressure 106/68 Pulse Oximetry 96 96 96 09/16/18 04:00 09/16/18 07:00 09/16/18 07:30 Temperature 97.9 F Pulse Rate 101 H 108 H Respiratory Rate 22 17 Blood Pressure 98/66 L Pulse Oximetry 95 94 L 93 L 09/16/18 08:00 09/16/18 11:00 09/16/18 12:00 Temperature 98.7 F 97.9 F Pulse Rate 95 H 91 H Respiratory Rate 21 20 Blood Pressure 101/68 110/62 Pulse Oximetry 97 94 L 09/16/18 12:51 Temperature Pulse Rate 100 H Respiratory Rate 19 Blood Pressure Pulse Oximetry GENERAL: A&O x 3 SKIN: Warm and dry.prevena dressing to chest , incision intact to left leg HEAD: Normocephalic. EYES: No scleral icterus. No injection or drainage. NECK: Supple, trachea midline. No JVD or lymphadenopathy. CARDIOVASCULAR: Regular rate and rhythm, occasional ectopy without murmurs, gallops, or rubs. mild general edema RESPIRATORY: diminished in bases, few crackles Breath sounds equal bilaterally. No accessory muscle use. GASTROINTESTINAL: Abdomen soft, non-tender, nondistended. MUSCULOSKELETAL: No cyanosis, or edema. BACK: Nontender without obvious deformity. No CVA tenderness. Labs: Laboratory Results - last 12 hr 09/16/18 09/16/18 09/16/18 04:25 04:25 12:15 WBC 14.8 H RBC 3.01 L Hgb 9.4 L Hct 27.7 L MCV 92.1 MCH 31.1 MCHC 33.8 RDW 14.2 Plt Count 107 L MPV 10.8 Neut % (Auto) 83.9 H Lymph % (Auto) 10.0 Spink % (Auto) 6.0 Eos % (Auto) 0.0 Baso % (Auto) 0.1 Neut # (Auto) 12.4 H Lymph # (Auto) 1.5 Spink # (Auto) 0.9 Eos # (Auto) 0.0 Baso # (Auto) 0.0 WBC Differential . Differential Comment Auto diff final Sodium 137 Potassium 4.4 Chloride 105 Carbon Dioxide 24.6 Anion Gap 7 BUN 46 H Creatinine 1.63 H Estimated GFR 30 L POC Glucose 143 H Random Glucose 124 H Calcium 7.9 L Magnesium 2.2 Result Diagrams: 09/16/18 04:25 09/16/18 04:25 Telemetry: Afib> NSR - Plan (2) Hyperlipidemia Plan: on statin (4) Mitral valve insufficiency Plan: s/p mitral valve repair ASA, statin , start BB when BP allows OOB ambulate pulm toileting continue amiodarone monitor HGB, no transfusion at this time transfer to stepdown
[2018-09-17 04:41] LABS: Baso % (Auto) 0.1 % (0.0-2.0); Eos % (Auto) 0.1 % (0.0-4.0); Hematocrit 25.2 % (35.0-46.0); Hemoglobin 8.4 gm/dL (11.6-15.3); Lymph # (Auto) 1.5 th/mm3 (1.0-4.8); Lymph % (Auto) 13.5 % (9.0-44.0); Mean Corpuscular HGB Conc 33.4 % (32.0-36.0); Mean Corpuscular Volume 92.6 fL (80.0-100.0); Mean Platelet Volume 10.9 fL (7.0-11.0); Mono # (Auto) 0.7 th/mm3 (0.0-0.9); Mono % (Auto) 6.3 % (0.0-8.0); Neut # (Auto) 8.9 th/mm3 (1.8-7.7); Platelet Count 96 th/mm3 (150-450); Red Blood Count 2.72 mil/mm3 (4.00-5.30); White Blood Count 11.1 th/mm3 (4.0-11.0)
[2018-09-17 05:04] LABS: Calcium 7.9 mg/dL (8.5-10.1); Carbon Dioxide 22.7 meq/L (21.0-32.0); Magnesium 2.5 mg/dL (1.5-2.5); Potassium 4.1 meq/L (3.5-5.1)
[2018-09-17] MEDS: Insulin NovoLOG Aspart Correctional Sugar Inj SQ SCH ×4 (08:46→22:09)
[2018-09-17] MEDS: Multivitamin/Minerals Therapeutic Tablet PO SCH (08:46)
[2018-09-17] MEDS: Docusate Sodium 100 MG Capsule PO SCH ×2 (08:46→20:19)
[2018-09-17] MEDS: Allopurinol 100 MG Tablet PO SCH (08:47)
[2018-09-17] MEDS: Polyethylene Glycol 3350 17 GM Packet PO SCH (08:48)
[2018-09-17] MEDS: Mupirocin 2% Nasal Oint Topical Syringe EACH NARE SCH ×2 (08:48→20:20)
--- NOTE | 2018-09-17 17:14 | P.PNCV ---
- Note Subjective/Hospital Course: 78yr/ old female , hx of Mitral Valve disease . Underwent cardiac cath by Dr Toure , 3 vessel CAD, KALEB mod to severe MR with EF 55% seen in office by Dr Child on 09/01/18 PMH: CAD, MR, HLP, HTN 09/14 pt electively admitted for surgery today MVR/CABG surgery: Mitral valve repair Quadrangular resection P1 with leaflet reconstruction, closure of posterior leaflet P2/P3 cleft Annuloplasty with a 28 [address] [place] ring CABG x 4 LANDIN to LAD - good SVG to D1 - fair SVG to OM1 - good SVG to RCA - good EVH Resection of left atrial appendage Patient received 2500 cc crystalloid intraoperative. 500 the Cell Saver. Estimated blood loss was 1000 cc. Patient had 350 cc urine output. Postprocedure, patient was hypoxic and requiring dopamine currently at 5 mics per kilogram per minute to maintain mean arterial pressure of 65. 09/15 pt remains on 2 mcq of Dopamine was on 8 liters 6 liters +5200 4kg gentle diuresis , no BB for now with labile BP, on ASA statin needs aggressive pulm toileting OOB with PT 09/16 creatinine increased, hold on diuresis went into afib RVR last night , recieved amiodarone bolus converted to NSR, BP labile, hold BB stable to transfer to stepdown unit 09/17 gentle diuresis went back into afib / amiodarone gtt/ converted to NSR chest tube dc without difficulty Objective: Vital Signs - 24 hr 09/16/18 19:15 09/16/18 20:00 09/16/18 23:00 Temperature 97.9 F Pulse Rate 104 H Respiratory Rate 18 Blood Pressure 138/60 Pulse Oximetry 97 95 95 09/17/18 00:00 09/17/18 03:00 09/17/18 03:20 Temperature 98 F 98 F Pulse Rate 156 H 130 H Respiratory Rate 16 18 Blood Pressure 105/63 101/56 L Pulse Oximetry 95 09/17/18 04:00 09/17/18 07:00 09/17/18 07:40 Temperature Pulse Rate 130 H 85 Respiratory Rate 16 Blood Pressure Pulse Oximetry 94 L 09/17/18 07:51 09/17/18 08:00 09/17/18 09:00 Temperature 98.1 F Pulse Rate 69 88 78 Respiratory Rate 17 Blood Pressure 129/62 Pulse Oximetry 94 L 09/17/18 09:09 09/17/18 10:00 09/17/18 11:00 Temperature Pulse Rate 78 74 78 Respiratory Rate 16 Blood Pressure Pulse Oximetry 97 09/17/18 11:17 09/17/18 11:20 09/17/18 12:00 Temperature 98.3 F Pulse Rate 81 86 Respiratory Rate 17 Blood Pressure 128/66 Pulse Oximetry 95 95 09/17/18 13:00 09/17/18 14:00 09/17/18 15:00 Temperature Pulse Rate 74 72 82 Respiratory Rate Blood Pressure Pulse Oximetry 09/17/18 16:00 09/17/18 16:05 09/17/18 16:18 Temperature 98.3 F Pulse Rate 73 75 Respiratory Rate 17 Blood Pressure 126/59 L Pulse Oximetry 95 95 GENERAL: A&O x 3 SKIN: Warm and dry.prevena dressing to chest HEAD: Normocephalic. EYES: No scleral icterus. No injection or drainage. NECK: Supple, trachea midline. No JVD or lymphadenopathy. CARDIOVASCULAR: Regular rate and rhythm without murmurs, gallops, or rubs. RESPIRATORY: Breath sounds equal bilaterally. No accessory muscle use. diminished in bases GASTROINTESTINAL: Abdomen soft, non-tender, nondistended. MUSCULOSKELETAL: No cyanosis, or edema. BACK: Nontender without obvious deformity. No CVA tenderness. Labs: Laboratory Results - last 12 hr 09/14/18 09/17/18 09/17/18 06:00 04:20 07:54 WBC Differential . Diff Scan Auto diff confirmed Platelet Estimate Low L Platelet Morphology Enlarged H POC Glucose 179 H MTS Gel Crossmatch See Detail 09/17/18 12:21 WBC Differential Diff Scan Platelet Estimate Platelet Morphology POC Glucose 135 H MTS Gel Crossmatch Result Diagrams: 09/17/18 04:20 09/17/18 04:20 - Plan (2) Hyperlipidemia Plan: on statin (3) Hypertension Plan: hold home meds (4) Mitral valve insufficiency Plan: s/p mitral valve repair (5) S/P CABG (coronary artery bypass graft) Plan: ASA, statin , BB OOB pulm toileting PT on amiodarone ASA may need NOAC if goes back into afib
[2018-09-17] MEDS: Amiodarone 200 MG Tablet PO SCH (17:47)
[2018-09-17] MEDS: Metoprolol Tartrate 25 MG Tablet PO SCH (20:20)
[2018-09-18 05:17] LABS: Calcium 7.6 mg/dL (8.5-10.1); Carbon Dioxide 24.8 meq/L (21.0-32.0); Magnesium 2.6 mg/dL (1.5-2.5); Potassium 4.1 meq/L (3.5-5.1)
[2018-09-18] MEDS: Amiodarone 200 MG Tablet PO SCH ×2 (05:20→17:35)
[2018-09-18 05:48] LABS: Baso % (Auto) 0.2 % (0.0-2.0); Eos # (Auto) 0.1 th/mm3 (0.0-0.4); Eos % (Auto) 0.8 % (0.0-4.0); Hematocrit 25.7 % (35.0-46.0); Lymph # (Auto) 1.1 th/mm3 (1.0-4.8); Lymph % (Auto) 11.9 % (9.0-44.0); Mean Corpuscular Hemoglobin 31.5 pg (27.0-34.0); Mean Corpuscular Volume 90.1 fL (80.0-100.0); Mean Platelet Volume 11.5 fL (7.0-11.0); Mono # (Auto) 0.7 th/mm3 (0.0-0.9); Neut # (Auto) 7.2 th/mm3 (1.8-7.7); Neut % (Auto) 79.1 % (16.0-70.0); Platelet Count 108 th/mm3 (150-450); Red Blood Count 2.85 mil/mm3 (4.00-5.30); Red Cell Distribution Width 13.8 % (11.6-17.2); White Blood Count 9.1 th/mm3 (4.0-11.0)
--- NOTE | 2018-09-18 06:46 | XR ---
EXAM DATE: 09/18/2018 5:55 AM EST AGE/SEX: 78 years / Female INDICATIONS: Chest tube removal. Rule out PTX. CLINICAL DATA: This is the patient's subsequent encounter. Patient reports that signs and symptoms h ave been present for 4 - 6 days and indicates a pain score of Nonresponsive. MEDICAL/SURGICAL HISTORY: . Hypertension. CAD. Stage 3 kidney disease. Hyperlipidemia. Mitral r egurgitation. . CABG. Rt knee replacement. Cardiac cath. Chest tube. COMPARISON: [facility] – [place] CHEST 1V SINGLE AP, 09/15/2018. . FINDINGS: Portable AP view of the chest demonstrates stable enlargement of the cardiac silhouette with calcific ation of the aorta in this patient post median sternotomy. The right IJ line and left chest tube have been removed. Mediastinal drain has also been removed. No pneumothorax is visualized. There is a nitesh ear opacity at the right lung base and airspace opacity in the left lower lung zone. CONCLUSION: 1. No pneumothorax is identified following left chest tube removal. 2. Airspace opacity is stable to mildly increased in the left lower lung zone. The linear opacity at the right lung base is stable and may represent subsegmental atelectasis or scar. Electronically signed by: Flavio Titus MD 09/18/2018 6:45 AM EST
[2018-09-18] MEDS: Docusate Sodium 100 MG Capsule PO SCH ×2 (08:30→21:17)
[2018-09-18] MEDS: Allopurinol 100 MG Tablet PO SCH (08:30)
[2018-09-18] MEDS: Metoprolol Tartrate 25 MG Tablet PO SCH ×4 (08:31→21:10)
[2018-09-18] MEDS: Polyethylene Glycol 3350 17 GM Packet PO SCH (08:31)
[2018-09-18] MEDS: Multivitamin/Minerals Therapeutic Tablet PO SCH (08:31)
[2018-09-18] MEDS: Insulin NovoLOG Aspart Correctional Sugar Inj SQ SCH ×4 (08:34→21:10)
--- NOTE | 2018-09-18 15:17 | P.PNCV ---
- Note Subjective/Hospital Course: 78yr/ old female , hx of Mitral Valve disease . Underwent cardiac cath by Dr Toure , 3 vessel CAD, KALEB mod to severe MR with EF 55% seen in office by Dr Child on 09/01/18 PMH: CAD, MR, HLP, HTN 09/14 pt electively admitted for surgery today MVR/CABG surgery: Mitral valve repair Quadrangular resection P1 with leaflet reconstruction, closure of posterior leaflet P2/P3 cleft Annuloplasty with a 28 [address] [place] ring CABG x 4 LANDIN to LAD - good SVG to D1 - fair SVG to OM1 - good SVG to RCA - good EVH Resection of left atrial appendage Patient received 2500 cc crystalloid intraoperative. 500 the Cell Saver. Estimated blood loss was 1000 cc. Patient had 350 cc urine output. Postprocedure, patient was hypoxic and requiring dopamine currently at 5 mics per kilogram per minute to maintain mean arterial pressure of 65. 09/15 pt remains on 2 mcq of Dopamine was on 8 liters 6 liters +5200 4kg gentle diuresis , no BB for now with labile BP, on ASA statin needs aggressive pulm toileting OOB with PT 09/16 creatinine increased, hold on diuresis went into afib RVR last night , recieved amiodarone bolus converted to NSR, BP labile, hold BB stable to transfer to stepdown unit 09/17 gentle diuresis went back into afib / amiodarone gtt/ converted to NSR chest tube dc without difficulty 09/18 CXR noted , add additional diuresis , coarse breath sounds left lower lobe add doxycycline eval for dc tomorrow will need to wean off 02 Objective: Vital Signs - 24 hr 09/17/18 16:00 09/17/18 16:05 09/17/18 16:18 Temperature 98.3 F Pulse Rate 73 75 Respiratory Rate 17 Blood Pressure 126/59 L Pulse Oximetry 95 95 09/17/18 20:00 09/17/18 21:00 09/17/18 22:00 Temperature 99 F Pulse Rate 80 75 76 Respiratory Rate 20 Blood Pressure 137/80 Pulse Oximetry 95 09/17/18 22:54 09/17/18 23:00 09/18/18 00:00 Temperature 98.5 F Pulse Rate 75 72 71 Respiratory Rate 20 20 Blood Pressure 127/58 L Pulse Oximetry 95 09/18/18 01:00 09/18/18 02:00 09/18/18 02:57 Temperature Pulse Rate 72 71 73 Respiratory Rate Blood Pressure Pulse Oximetry 09/18/18 03:02 09/18/18 04:00 09/18/18 05:00 Temperature 98.4 F Pulse Rate 71 70 83 Respiratory Rate 20 Blood Pressure 107/50 L Pulse Oximetry 95 09/18/18 05:49 09/18/18 07:00 09/18/18 08:00 Temperature 98.2 F Pulse Rate 72 72 74 Respiratory Rate 16 Blood Pressure 114/56 L Pulse Oximetry 96 09/18/18 09:00 09/18/18 10:00 09/18/18 11:00 Temperature Pulse Rate 91 H 92 H 70 Respiratory Rate Blood Pressure Pulse Oximetry 09/18/18 12:00 09/18/18 12:50 Temperature 98 F Pulse Rate 71 72 Respiratory Rate 16 Blood Pressure 116/58 L Pulse Oximetry 99 GENERAL: A&O x 3 SKIN: Warm and dry. prevena dressing to chest HEAD: Normocephalic. EYES: No scleral icterus. No injection or drainage. NECK: Supple, trachea midline. No JVD or lymphadenopathy. CARDIOVASCULAR: Regular rate and rhythm without murmurs, gallops, or rubs. RESPIRATORY: Breath sounds equal bilaterally. No accessory muscle use. coarse breath sound left lower lobe GASTROINTESTINAL: Abdomen soft, non-tender, nondistended. MUSCULOSKELETAL: No cyanosis, or edema. BACK: Nontender without obvious deformity. No CVA tenderness. Labs: Laboratory Results - last 12 hr 09/18/18 09/18/18 09/18/18 03:49 03:49 08:33 WBC 9.1 RBC 2.85 L Hgb 9.0 L Hct 25.7 L MCV 90.1 MCH 31.5 MCHC 35.0 RDW 13.8 Plt Count 108 L MPV 11.5 H Neut % (Auto) 79.1 H Lymph % (Auto) 11.9 [place] % (Auto) 8.0 Eos % (Auto) 0.8 Baso % (Auto) 0.2 Neut # (Auto) 7.2 Lymph # (Auto) 1.1 [place] # (Auto) 0.7 Eos # (Auto) 0.1 Baso # (Auto) 0.0 WBC Differential . Differential Comment Auto diff final Hematology Comments Sodium 137 Potassium 4.1 Chloride 105 Carbon Dioxide 24.8 Anion Gap 7 BUN 35 H Creatinine 1.22 H Estimated GFR 42 L POC Glucose 144 H Random Glucose 100 Calcium 7.6 L Magnesium 2.6 H 09/18/18 12:12 WBC RBC Hgb Hct MCV MCH MCHC RDW Plt Count MPV Neut % (Auto) Lymph % (Auto) [place] % (Auto) Eos % (Auto) Baso % (Auto) Neut # (Auto) Lymph # (Auto) [place] # (Auto) Eos # (Auto) Baso # (Auto) WBC Differential Differential Comment Hematology Comments Sodium Potassium Chloride Carbon Dioxide Anion Gap BUN Creatinine Estimated GFR POC Glucose 135 H Random Glucose Calcium Magnesium Result Diagrams: 09/18/18 03:49 09/18/18 03:49 Telemetry: NSR - Plan (2) Hyperlipidemia Plan: on statin (3) Hypertension Plan: hold home meds (4) Mitral valve insufficiency Plan: s/p mitral valve repair (5) S/P CABG (coronary artery bypass graft) Plan: ASA, statin , BB OOB pulm toileting PT gentle diuresis add doxycycline x 7 days (6) Atrial fibrillation Plan: back in NSR add eliquis taper dose BB
--- NOTE | 2018-09-18 15:42 | P.DS ---
Date of admission: 09/14/18 05:27 Primary care physician: Do Max Garcia Attending physician on discharge: Mai Child Anticipated date of discharge: 09/19/18 Brief History from admission: 78yr/ old female , hx of Mitral Valve disease . Underwent cardiac cath by Dr Toure , 3 vessel CAD, KALEB mod to severe MR with EF 55% seen in office by Dr Child on 09/01/18 PMH: CAD, MR, HLP, HTN 09/14 pt electively admitted for surgery today DS: Diagnosis - Discharge Diagnosis (1) CAD (coronary artery disease), [place] coronary artery Status: Acute (2) Hyperlipidemia Status: Acute (3) Hypertension Status: Acute (4) Mitral valve insufficiency Status: Acute (5) S/P CABG (coronary artery bypass graft) Status: Acute (6) Atrial fibrillation Status: Acute DS: Medications - Discharge Medications Prescriptions: amiodarone 400 mg PO Q12H #35 tab docusate sodium [DOK] 100 mg PO BID #30 cap doxycycline hyclate 100 mg PO Q12HR #12 tab hydrocodone-acetaminophen 1 tab PO Q6H PRN #20 tab PRN Reason: Acute Pain metoprolol tartrate 12.5 mg PO BID #60 tab ttbgbopv-igot-YJ-calcium-mins [Thera M Plus (ferrous fumarat)] 1 tab PO DAILY # 30 tab DS: Summary Hospital Course: 09/14 pt electively admitted for surgery today MVR/CABG surgery: Mitral valve repair Quadrangular resection P1 with leaflet reconstruction, closure of posterior leaflet P2/P3 cleft Annuloplasty with a 28 [address] [place] [place] ring CABG x 4 LANDIN to LAD - good SVG to D1 - fair SVG to OM1 - good SVG to RCA - good EVH Resection of left atrial appendage Patient received 2500 cc crystalloid intraoperative. 500 the Cell Saver. Estimated blood loss was 1000 cc. Patient had 350 cc urine output. Postprocedure, patient was hypoxic and requiring dopamine currently at 5 mics per kilogram per minute to maintain mean arterial pressure of 65. 09/15 pt remains on 2 mcq of Dopamine was on 8 liters 6 liters +5200 4kg gentle diuresis , no BB for now with labile BP, on ASA statin needs aggressive pulm toileting OOB with PT 09/16 creatinine increased, hold on diuresis went into afib RVR last night , recieved amiodarone bolus converted to NSR, BP labile, hold BB stable to transfer to stepdown unit 09/17 gentle diuresis went back into afib / amiodarone gtt/ converted to NSR chest tube dc without difficulty 09/18 weaning 02 add doxycycline for 7 days / bronchitis continue diuresis - Time Spent with Patient Total time spent providing and/or coordinating discharge services: Greater than 30 minutes - Quality: VTE Deep Vein Thrombosis/Pulmonary Embolism Present on Admission: No Exam Vital signs: Vital Signs 09/17/18 16:00 09/17/18 16:05 09/17/18 16:18 Temperature 98.3 F Pulse Rate 73 75 Respiratory Rate 17 Blood Pressure 126/59 L Pulse Oximetry 95 95 09/17/18 20:00 09/17/18 21:00 09/17/18 22:00 Temperature 99 F Pulse Rate 80 75 76 Respiratory Rate 20 Blood Pressure 137/80 Pulse Oximetry 95 09/17/18 22:54 09/17/18 23:00 09/18/18 00:00 Temperature 98.5 F Pulse Rate 75 72 71 Respiratory Rate 20 20 Blood Pressure 127/58 L Pulse Oximetry 95 09/18/18 01:00 09/18/18 02:00 09/18/18 02:57 Temperature Pulse Rate 72 71 73 Respiratory Rate Blood Pressure Pulse Oximetry 09/18/18 03:02 09/18/18 04:00 09/18/18 05:00 Temperature 98.4 F Pulse Rate 71 70 83 Respiratory Rate 20 Blood Pressure 107/50 L Pulse Oximetry 95 09/18/18 05:49 09/18/18 07:00 09/18/18 08:00 Temperature 98.2 F Pulse Rate 72 72 74 Respiratory Rate 16 Blood Pressure 114/56 L Pulse Oximetry 96 09/18/18 09:00 09/18/18 10:00 09/18/18 11:00 Temperature Pulse Rate 91 H 92 H 70 Respiratory Rate Blood Pressure Pulse Oximetry 09/18/18 12:00 09/18/18 12:50 09/18/18 14:00 Temperature 98 F Pulse Rate 71 72 75 Respiratory Rate 16 Blood Pressure 116/58 L Pulse Oximetry 99 09/18/18 15:00 Temperature Pulse Rate 74 Respiratory Rate Blood Pressure Pulse Oximetry Intake & Output 09/17/18 09/18/18 09/18/18 18:59 06:59 18:59 Intake Total 480 / 480 480 / 480 Output Total 350 / 350 1100 / 1100 Balance 130 / 130 -620 / -620 Weight 92.8 kg 91.6 kg Intake: Oral 480 / 480 480 / 480 Output: Urine 350 / 350 1100 / 1100 Other: # Voids 3 # Incontinent Voids 2 Date of Last Bowel Movement 09/17/18 09/17/18 09/17/18 # Bowel Movements 1 1 - Constitutional no acute distress - Routine HEENT Exam Head: Present: normocephalic Eye: Present: EOMI, PERRL, normal accommodation - Routine Neck Exam Present: supple, full ROM - Routine Respiratory Exam Comments: few crackles left lower base - Routine Cardiovascular Exam Present: RRR, S1, S2 - Routine Extremities Exam Present: pulses intact, normal capillary refill - Routine Skin Exam Present: wounds Comments: prevena dressing to chest - Routine Neurological Exam Present: alert, oriented X3 Results Procedures completed during hospitalization: same Date of procedure: 09/14/18 Procedure: Mitral valve repair Quadrangular resection P1 with leaflet reconstruction, closure of posterior leaflet P2/P3 cleft Annuloplasty with a 28 [address] [place] ring CABG x 4 LANDIN to LAD - good SVG to D1 - fair Completed studies during hospitalization: Pending at discharge 09/14/18 14:10 Surgical [PTH] Routine Labs on day of discharge: Labs from last 24 hours 09/18/18 09/18/18 09/18/18 12:12 08:33 03:49 WBC RBC Hgb Hct MCV MCH MCHC RDW Plt Count MPV Neut % (Auto) Lymph % (Auto) [place] % (Auto) Eos % (Auto) Baso % (Auto) Neut # (Auto) Lymph # (Auto) [place] # (Auto) Eos # (Auto) Baso # (Auto) WBC Differential Differential Comment Hematology Comments Sodium 137 Potassium 4.1 Chloride 105 Carbon Dioxide 24.8 Anion Gap 7 BUN 35 H Creatinine 1.22 H Estimated GFR 42 L POC Glucose 135 H 144 H Random Glucose 100 Calcium 7.6 L Magnesium 2.6 H 09/18/18 09/17/18 09/17/18 03:49 20:27 16:22 WBC 9.1 RBC 2.85 L Hgb 9.0 L Hct 25.7 L MCV 90.1 MCH 31.5 MCHC 35.0 RDW 13.8 Plt Count 108 L MPV 11.5 H Neut % (Auto) 79.1 H Lymph % (Auto) 11.9 [place] % (Auto) 8.0 Eos % (Auto) 0.8 Baso % (Auto) 0.2 Neut # (Auto) 7.2 Lymph # (Auto) 1.1 [place] # (Auto) 0.7 Eos # (Auto) 0.1 Baso # (Auto) 0.0 WBC Differential . Differential Comment Auto diff final Hematology Comments Sodium Potassium Chloride Carbon Dioxide Anion Gap BUN Creatinine Estimated GFR POC Glucose 108 156 H Random Glucose Calcium Magnesium - Impressions ITS Impressions Chest X-Ray 09/18/18 06:00 CONCLUSION: 1. No pneumothorax is identified following left chest tube removal. 2. Airspace opacity is stable to mildly increased in the left lower lung zone. The linear opacity at the right lung base is stable and may represent subsegmental atelectasis or scar. Discharge Plan - Discharge Disposition Patient Disposition: /Home Health Service - Discharge Condition Condition: Fair - Discharge Order Discharge Orders: Discharge Order (Routine); Ordered 09/19/18 Ordered By: Lexus Gold - Discharge Details Anticipated Discharge Date: 09/19/18 Discharge Comment: when cleared by Dr Mcleod - Physicians Team Primary Care Provider: Do Max Garcia Attending Provider: Mai Child Other Providers: Cezar Preston MD ; Jaja Muniz MD ; Callie Ledesma - Rxs /Orders / Referrals /Forms Prescriptions: New amiodarone 200 mg Tablet 400 mg PO Q12H Qty: 35 RF: 0 apixaban [Eliquis] 2.5 mg Tablet 2.5 mg PO BID Qty: 60 RF: 2 docusate sodium [DOK] 100 mg Capsule 100 mg PO BID Qty: 30 RF: 0 doxycycline hyclate 100 mg Tablet 100 mg PO Q12HR Qty: 12 RF: 0 hydrocodone-acetaminophen 5-325 mg Tablet 1 tab PO Q6H PRN (Reason: Acute Pain) Qty: 20 RF: 0 metoprolol tartrate 25 mg Tablet 12.5 mg PO BID Qty: 60 RF: 2 wmlwvrss-vhhn-BG-calcium-mins [Thera M Plus (ferrous fumarat)] 9 mg iron-400 mcg Tablet 1 tab PO DAILY Qty: 30 RF: 2 Continue allopurinol 100 mg Tablet 100 mg PO DAILY aspirin [Aspirin Low Dose] 81 mg Tablet,Delayed Release (Dr/Ec) 81 mg PO DAILY calcium carbonate-vitamin D3 [Caltrate 600 + D] 600 mg (1,500 mg)-800 unit Tablet,Chewable 1 tab PO DAILY cholecalciferol (vitamin D3) [Vitamin D3] 2,000 unit Capsule 2,000 unit PO DAILY pravastatin 40 mg Tablet 60 mg PO DAILY vitamin F22-uauoo acid 0.5-1 mg Tablet 1 tab PO DAILY Discontinued amlodipine 5 mg Tablet 5 mg PO DAILY furosemide 20 mg Tablet 20 mg PO DAILY labetalol 200 mg Tablet 200 mg PO DAILY labetalol 100 mg Tablet 100 mg PO HS Ambulatory Orders / Order Sets / DME: Echo 2D Comp with doppler (Routine) Timeframe: 2 Weeks Location: Determined by Patient Ordered By: Lexus Gold Walker With Front Wheels (1 each) (Routine) Location: Determined by Patient Ordered By: Lexus Gold XR chest 2V PA&LAT (Routine) Timeframe: 2 Weeks Location: Determined by Patient Ordered By: Lexus Gold Basic Metabolic Panel (Routine) Timeframe: 2 Weeks Location: Determined by Patient Ordered By: Lexus Gold Complete Blood Count NO Diff (Routine) Timeframe: 2 Weeks Location: Determined by Patient Ordered By: Lexus Gold Referrals: Cezar Preston MD [Physician] - See Instructions ( Zoie from physician's office call you to book the appointment. Please be sure to be seen within 4 weeks of discharge. ) Do Max Garcia MD [Primary Care Provider] - See Instructions ( Your appointment has been scheduled for [09/30/18] at [3:40 pm] If you cannot make this appointment, please call the office to reschedule ) Lexus Gold [ADVANCE RN PRACTITIONER] - See Instructions ( Your appointment has been scheduled for [10/08/18] at [11:15 am] If you cannot make this appointment, please call the office to reschedule ) - Discharge Instructions Patient Printed Instructions: Coronary Artery Bypass Graft (DC) Additional Instructions: PREVENA Single Use Negative Wound Therapy System Caregiver Instruction Sheet 1. A Prevena dressing system was applied to the chest incision during surgery , to promote wound healing. It works via a suction device (negative pressure wound therapy) to remove low to moderate levels of exudate (drainage) and infectious materials. We recommend that the device stay in place for up to seven days, from day of surgery. 2. Day of Surgery____09/14/18 Day of Removal ____/01/04 3. The dressing should only be removed by a health acute care assistant. Please arrange removal of device to coincide with Home Health visit and or with Nursing staff at Rehab 4. If skin reddening or irritation of skin occurs, or excessive drainage, please notify the Cardiovascular Surgeons office at [phone]. 5. Light showering is permissible; however the pump should be disconnected and placed in safe location, where it will not get wet. The dressing should not be exposed to direct spray or submerged in water. No bath tub / shower only. Ensure the end of the tubing attached to the dressing is facing down so that water does not enter the top of the tube. 6. To remove Prevena dressing: press purple button to turn off device / remove the suction. Then disconnect the tubing from the pump. The fixation strips should be stretched away from the skin and the dressing lifted at one corner and peeled back until it has been fully removed. 7. After removal, it is ok to shower daily using liquid dial soap and clean wash cloth, rinse and pat dry, and leave incision open to air dry. For any concerns regarding Prevena dressing, and or wounds, please contact Malissa Thomas, patient navigator at [phone] or notify the Cardiovascular Surgeons office at [phone]. Incentive spirometry Q1 hr x 10, while awake, also use acapella device hourly whole awake Sternal Breast Bone Precautions: NO pushing or pulling, ( pt must use sternal pillow to support chest with all activities and with coughing ( takes up to 3 months breast bone to heal ) All females to wear sternal bra , launder as needed Daily incision care: ok to shower daily, no tub bath. Wash all incisions with liquid dial soap, clean wash cloth to each site, rinse and pat dry. Observe for any signs of infection, such as drainage which is dark yellow, barrera, green or foul smelling. Immediately report to the surgeon any drainage from the chest incision, or legs, and for any abnormal drainage from the chest tube sites. Notify surgeon if any temp >101.5 degrees F. When specialty dressing removed/ or if you do not have one, continue to shower daily as above, then rinse and pat incision dry and paint with betadine daily x 5 days. Allow steri strips to fall off if you have any. Avoid lotions, creams, salves, oils, etc. for the first month Please see attached forms for additional instructions regarding post Open Heart specialty wound vacuum dressings. AILYN or Prevena , Dressing to be removed by Nursing staff on __09/21/[address] Child patients , please obtain CBC, BMP, PA & Lat CXR in 2 weeks, results to Dr. Child ( prescription will be given) ( ) (Tele: [phone]) , Valve replacement pts will need 2decho in 2 weeks with results to Dr. Child . Please obtain 2 d echo at your preload supervisor office if possible F/U appointment: as per DC instructions: PCP in 2 weeks, CV surgeon 2 weeks, Diesel Lube Tech 3-4 weeks For any questions regarding incisions/ dressing / meds / post op care or above Symptoms, Friday 8am-5pm Heart & Vascular Surgery Office ( Dr. Mcleod & Dr. Child), After Hours / Nights (5pm -8am) Weekends and Holidays Please call [facility] ([facility]) Charge Nurse
--- NOTE | 2018-09-18 17:12 | P.DCO ---
- Diagnosis (1) Atrial fibrillation Status: Chronic (2) Diastolic heart failure Status: Chronic (3) Mitral valve replaced Status: Acute (4) CAD (coronary artery disease), [place] coronary artery Status: Acute (5) Hyperlipidemia Status: Chronic (6) Hypertension Status: Chronic (7) Mitral valve insufficiency Status: Chronic (8) S/P CABG (coronary artery bypass graft) Status: Acute - Home Health Nursing Order: Medical education, Signs/symptoms of disease process, Wound care and dressing changes, Nursing assessment with vital signs Instructions: Heart and Vascular Surgery patients *Special attention to sternal dressing Mandatory frequency Assess and evaluation, 4 days in a row The next week 3X week 2 times a week for 4 weeks 1 time a week for 5 weeks Schedule Heart and Vascular patients for full 60 day certification period Initial visit Review Open Heart Surgery Discharge Instructions (Sternal precautions, Activity, Elastic hose, Incision care, Driving, Incentive spirometry, Smoking, Senath, Work and other) Need Betadine to paint incision Medication reconciliation Importance of follow up care/ check on appointments Make calendar record temperature daily When to call [facility] nurse, review instructions, phone list Incentive Spirometry, demonstration Visit 1- Begin discharge instruction for patient family and/ or caregiver using teach back method- Signs and symptoms of infection Disease characteristics Medicines and side effects Foods and nutrition/ appetite Infection control/ hand washing/ hygiene Visit 2- Continue teaching Discharge instructions- include additional information on smoking cessation , sternal dressing (sternal vac) Visit 3- Continue teaching- Cough and deep breathing, incision monitoring. Choose my plate Visit 4- Continue teaching- Discuss limitations Discuss how they are feeling Discuss progress toward goals Remaining visits- continue teaching and monitoring For any questions please call : Friday 8am-5pm Heart & Vascular Surgery Office ( Dr. Mcleod & Dr. Child), After Hours / Nights (5pm -8am) Weekends and Holidays Please call [facility] ([facility]) Charge Nurse PREVENA Single Use Negative Wound Therapy System Caregiver Instruction Sheet 1. A Prevena dressing system was applied to the chest incision during surgery , to promote wound healing. It works via a suction device (negative pressure wound therapy) to remove low to moderate levels of exudate (drainage) and infectious materials. We recommend that the device stay in place for up to seven days, from day of surgery. 2. Day of Surgery___09/14/18 Day of Removal ____09/21/18 3. The dressing should only be removed by a health health care recruiter. Please arrange removal of device to coincide with Home Health visit and or with Nursing staff at Rehab 4. If skin reddening or irritation of skin occurs, or excessive drainage, please notify the Cardiovascular Surgeons office at [phone]. 5. Light showering is permissible; however the pump should be disconnected and placed in safe location, where it will not get wet. The dressing should not be exposed to direct spray or submerged in water. No bath tub / shower only. Ensure the end of the tubing attached to the dressing is facing down so that water does not enter the top of the tube. 6. To remove Prevena dressing: press purple button to turn off device / remove the suction. Then disconnect the tubing from the pump. The fixation strips should be stretched away from the skin and the dressing lifted at one corner and peeled back until it has been fully removed. 7. After removal, it is ok to shower daily using liquid dial soap and clean wash cloth, rinse and pat dry, and leave incision open to air dry. For any concerns regarding Prevena dressing, and or wounds, please contact Malissa Thomas, patient navigator at [phone] or notify the Cardiovascular Surgeons office at [phone]. Incentive spirometry Q1 hr x 10, while awake, also use acapella device hourly whole awake Sternal Breast Bone Precautions: NO pushing or pulling, ( pt must use sternal pillow to support chest with all activities and with coughing ( takes up to 3 months breast bone to heal ) All females to wear sternal bra , launder as needed Daily incision care: ok to shower daily, no tub bath. Wash all incisions with liquid dial soap, clean wash cloth to each site, rinse and pat dry. Observe for any signs of infection, such as drainage which is dark yellow, barrera, green or foul smelling. Immediately report to the surgeon any drainage from the chest incision, or legs, and for any abnormal drainage from the chest tube sites. Notify surgeon if any temp >101.5 degrees F. When specialty dressing removed/ or if you do not have one, continue to shower daily as above, then rinse and pat incision dry and paint with betadine daily x 5 days. Allow steri strips to fall off if you have any. Avoid lotions, creams, salves, oils, etc. for the first month Please see attached forms for additional instructions regarding post Open Heart specialty wound vacuum dressings. AILYN or Prevena , Dressing to be removed by Nursing staff on __09/21/[address] Child patients , please obtain CBC, BMP, PA & Lat CXR in 2 weeks, results to Dr. Child ( prescription will be given) ( ) (Tele: [phone]) , Valve replacement pts will need 2decho in 2 weeks with results to Dr. Child . Please obtain 2 d echo at your [employer] office if possible F/U appointment: as per DC instructions: PCP in 2 weeks, CV surgeon 2 weeks, Mat Cutter 3-4 weeks For any questions regarding incisions/ dressing / meds / post op care or above Symptoms, Friday 8am-5pm Heart & Vascular Surgery Office ( Dr. Mcleod & Dr. Child), After Hours / Nights (5pm -8am) Weekends and Holidays Please call [facility] ([facility]) Charge Nurse - Case Management Consult Case Management Consult-Home Health: Yes - Certification I have seen patient Faby West on 09/18/18. My clinical findings support the need for the requested home health care services because: Deconditioned with increased weakness I certify that my clinical findings support that this patient is homebound because: Post-op weakness
[2018-09-19 00:13] VITALS: RESP 18
[2018-09-19] MEDS: Amiodarone 200 MG Tablet PO SCH (05:06)
[2018-09-19] MEDS: Multivitamin/Minerals Therapeutic Tablet PO SCH (09:47)
[2018-09-19] MEDS: Insulin NovoLOG Aspart Correctional Sugar Inj SQ SCH (09:47)
[2018-09-19] MEDS: Metoprolol Tartrate 25 MG Tablet PO SCH ×2 (09:48→09:49)
[2018-09-19] MEDS: Allopurinol 100 MG Tablet PO SCH (09:48)
[2018-09-19] MEDS: Polyethylene Glycol 3350 17 GM Packet PO SCH (09:49)
[2018-09-19] MEDS: Docusate Sodium 100 MG Capsule PO SCH (09:49)
[2018-09-19 10:16] VITALS: PULSE 80
[2018-09-19 10:27] VITALS: BP 113/55; TEMP 98.1; O2SAT 97
== END 2018-09-19 13:45 | disposition home health service (06) ==
LOC: HSDI 09-14 05:27 → HCVI 09-14 13:44 → HCPC 09-16 09:30
PROVIDERS: ADMIT Thoracic Surgery (Cardiothoracic Vascular Surgery); ATTEND Thoracic Surgery (Cardiothoracic Vascular Surgery)